=== PATIENT | female | born 1970 | race Caucasian/White ===

== ENCOUNTER 2020-01-07 12:18 | Outpatient (REF) | payer MEDICAID, OTHER, SELFPAY ==
--- NOTE | 2020-01-07 12:33 | XR_ITS ---
EXAMINATION: XR LUMBOSACRAL SPINE WITH OBLIQUES CLINICAL INFORMATION: Sacroiliitis. COMPARISON: None TECHNIQUE: AP, both oblique, and lateral views of the lumbar spine. Lateral view of the lumbosacral junction. FINDINGS: There is normal lumbar lordosis. The vertebral heights, alignment and disc heights are normal. There is no visible acute fracture, dislocation or subluxation. No listhesis or pars defect. The paravertebral soft tissues are normal. XR/XR lumbar spine 4V min IMPRESSION: Unremarkable lumbar spine exam.
== END 2020-01-07 12:19 | disposition home or self-care (01) ==
LOC: HO.XRAY 12:18
PROVIDERS: PCP Internal Medicine; Visit Provider Internal Medicine
DX: M46.1 Sacroiliitis, not elsewhere classified (principal)
CPT/HCPCS: 72110

== ENCOUNTER 2020-01-15 09:03 | Emergency (ER) | payer MEDICAID, SELFPAY ==
[2020-01-15 09:28] VITALS: BP 118/70; PULSE 90; RESP 17; TEMP 37.1; O2SAT 100; BMI 18.8
--- NOTE | 2020-01-15 09:40 | XR_ITS ---
EXAMINATION: XR HIP, LEFT CLINICAL INFORMATION: Left hip pain. COMPARISON: None TECHNIQUE: Two views of the left hip. FINDINGS: There is no visible acute fracture, dislocation or subluxation. No joint effusion seen. No bony erosive changes. XR/XR hip LT w PEL1V IMPRESSION: Unremarkable left hip exam.
--- NOTE | 2020-01-15 10:27 | ED.LOWEXIN ---
HPI - Extremity Injury (Lower) General Chief Complaint: Extremity Injury, Lower Stated Complaint: HIP PAIN Time Seen by Provider: 01/15/20 09:39 Source: patient Mode of arrival: ambulatory History of Present Illness HPI Narrative: 49-year-old female with no significant past medical history presenting to ED complaining of acute on chronic left hip pain x2 months. Admits recently had outpatient x-rays, however does not know the results. Reports continued pain in left hip/buttock, denies radiation. Denies low back pain, fever, chills, numbness, tingling, weakness, incontinence/retention. Denies injury/fall/trauma MD complaint: hip injury Onset (ago): month(s) Related Data Previous Rx's Medication Instructions Recorded acetaminophen [Tylenol Extra 500 mg PO Q6H PRN #20 tab 01/15/20 Strength] cyclobenzaprine 5 mg PO Q8H PRN 5 Days #14 tab 01/15/20 lidocaine [Lidoderm] 1 patch TOPICAL DAILY PRN #30 ea 01/15/20 MDD remove after 12 hours naproxen 500 mg PO BID PRN 10 Days #20 tab 01/15/20 Allergies Allergy/AdvReac Type Severity Reaction Status Date / Time No Known Allergies Allergy Verified 01/15/20 09:31 [No Known Allergies*] Review of Systems Review of Systems: Constitutional: No Fever, No Chills ENT/Mouth: No Ear Pain, No Nasal Congestion, No Sinus Pain, No Hoarseness, No sore throat Genitourinary:No Dysuria, No Urinary Incontinence, No Urgency, No Flank Pain Musculoskeletal: + joint pain, No Myalgias, No Joint Swelling Skin: No Skin Lesions, No rash Neuro: No Weakness, No Numbness, No Paresthesias Yes all other systems are reviewed and are negative [facility] [place] Past Medical History Attestation statement: The following information was validated with the patient. Medical History (Updated 01/15/20 @ 10:26 by STEPHY Dozier) No known health problems Social History Social History Advance Directives: No Advance Directives Information Provided: No Physical Exam Vital Signs: Vital Signs: Last Vital Signs Temp 98.8 F 01/15/20 09:28 Pulse 90 01/15/20 09:28 Resp 17 01/15/20 09:28 BP 118/70 01/15/20 09:28 Pulse Ox 100 01/15/20 09:28 Body Mass Index 18.8 Const: General: cooperative and healthy appearing Orientation/consciousness: patient oriented x3 Limitations: no limitations HENMT: Head: Yes normal to inspection Ears: hearing grossly normal bilaterally General nose exam: Normal external nose present Face and sinus: Yes normal facial exam Eyes: General: appearance normal, both eyes and all related structures EOM: EOMs intact bilaterally Neck: Neck: Yes normal visual inspection Resp: Effort & Inspection: normal respiratory effort Cardio: Peripheral pulses: dorsalis pedis present : General: Yes no CVA tenderness Back/Spine/Pelvis: Other: No midline spinous tenderness throughout Back: no CVA tenderness Skin: Rashes: no rashes Wounds: no wounds Neuro: General: patient oriented x3 Gait exam (Neuro): Normal gait present Extrem: Other: + left hip with ttp greater and buttock. No deformity, erythema, crepitus, fluctuance or induration. FROM/NV intact General: Yes normal to inspection MDM - Extremity Injury (Lower) MDM Narrative Medical decision making narrative: On exam VSS, NAD/well-appearing, ambulating with steady gait, left hip/buttock pain reproducible. Likely MSK/sciatic pain. Low concern for fracture/dislocation or cord compression Patient received lumbar spine x-rays which were WNL on 01/06, will add left hip/pelvic x-rays Anticipate DC home with PCP/PT follow-up Discharge Plan Discharge Clinical Impression: Hip pain Patient Disposition: Home, Self-Care Instructions: Hip Pain (ED) Additional Instructions: Your x-ray was unremarkable today in the ED Your pain is likely musculoskeletal Flexeril is a muscle relaxer, take at night as it makes you drowsy, do not drive, drink alcohol, or operate machinery while taking it Naproxen as an anti-inflammatory / pain medication, take with food Lidoderm patches are numbing patches, apply to painful area In addition take Tylenol at home You should follow-up with physical therapy If symptoms persist or worsen, pain becomes unbearable, you developed urinary retention or incontinence, or weakness return to the ED Prescriptions: New acetaminophen [Tylenol Extra Strength] 500 mg tablet 500 mg PO Q6H PRN (Reason: pain or fever) Qty: 20 RF: 0 lidocaine [Lidoderm] 5 % adhesive patch,medicated 1 patch topical DAILY MDD remove after 12 hours PRN (Reason: pain) Qty: 30 RF: 0 naproxen 500 mg tablet 500 mg PO BID PRN (Reason: pain) 10 Days Qty: 20 RF: 0 cyclobenzaprine 5 mg tablet 5 mg PO Q8H PRN (Reason: pain (scale score 7-10)) 5 Days Qty: 14 RF: 0 Referrals: Yolanda Crabtree [Registered Nurse] - 1 week Physician,None [Primary Care Provider] - 2 days (Your PCP)
== END 2020-01-15 10:42 | disposition home or self-care (01) ==
PROVIDERS: Emergency Provider Emergency Medicine
DX: M25.552 Pain in left hip (principal); Z79.899 Other long term (current) drug therapy
CPT/HCPCS: 73502; 99283

== ENCOUNTER 2020-04-15 13:10 | Emergency (ER) | payer MEDICAID, OTHER, SELFPAY | END 2020-04-15 16:28 | disposition left against medical advice (07) | PROVIDERS: Emergency Provider Emergency Medicine; PCP Internal Medicine | DX: M79.606 Pain in leg, unspecified (principal) ==

== ENCOUNTER 2020-08-01 12:38 | Outpatient (REF) | payer MEDICAID, OTHER, SELFPAY ==
--- NOTE | ~2020-08-01 | MM_ITS ---
EXAMINATION: MM SCREENING DIGITAL BREAST TOMOSYNTHESIS, BILATERAL CLINICAL INFORMATION: Screening. Asymptomatic. The lifetime risk of breast cancer based on the Tyrer-Cuzick Model is 6.9%. COMPARISON: Mammography: December 09, 2018 and November 19, 2017 TECHNIQUE: Digital breast tomosynthesis is performed in both the craniocaudal and mediolateral oblique views along with computer-aided detection (CAD). Synthesized 2D images are generated from the tomosynthesis. Additional left breast exaggerated craniocaudal view performed. FINDINGS: The breasts are heterogeneously dense, which may obscure small masses (ACR BI-RADS breast composition Category c). No suspicious left breast findings identified. Within the deep superior aspect of the right breast there is an irregular density which is more prominent than on prior studies and for which spot compression view is recommended with question ultrasound to follow. MM/MM tomosynthesis screening BI IMPRESSION: Right breast density deep superior aspect for further evaluation as described. ASSESSMENT: BI-RADS 0: Incomplete - Need Additional Imaging Evaluation RECOMMENDATION: 1. Additional views of the right breast 2. Targeted ultrasound if warranted after review of the additional views. 3. Radiology department staff will contact the patient for additional imaging. This patient's information was entered into a reminder system with a target due date for their next mammogram.
== END 2020-08-01 12:39 | disposition home or self-care (01) ==
LOC: HO.MAMMO 12:38
PROVIDERS: Visit Provider Internal Medicine
DX: Z12.31 Encounter for screening mammogram for malignant neoplasm of breast (principal)
CPT/HCPCS: 77063; 77067

== ENCOUNTER 2020-08-05 09:57 | Outpatient (REF) | payer MEDICAID, OTHER, SELFPAY ==
--- NOTE | ~2020-08-05 | MM_ITS ---
EXAMINATION: MM DIAGNOSTIC DIGITAL BREAST TOMOSYNTHESIS, RIGHT TARGETED RIGHT BREAST ULTRASOUND CLINICAL INFORMATION: Density deep superior aspect of the right breast. COMPARISON: Mammography: 08/01/2020 and studies dating back to 11/19/2017. TECHNIQUE: Digital breast tomosynthesis is performed. 2D images are generated from the tomosynthesis. The following views are obtained: Spot compression views in mediolateral oblique and craniocaudal projections. FINDINGS: The breasts are heterogeneously dense, which may obscure small masses (ACR BI-RADS breast composition Category c). Spot compression views demonstrate a density in the deep superior aspect of the right breast which may be related to a combination of vessels and lymph nodes with a similar appearance to previous study of 12/09/2018. Targeted right breast ultrasound does not demonstrate a suspicious solid mass or region of abnormal distal sound shadowing. There is a 3 mm simple cyst seen at the 9 o'clock position 5 cm from the nipple but which does not correspond to the location of question. Results are discussed with the patient at time of visit. MM/MM tomosynthesis added views R IMPRESSION: Probable stable density deep superior aspect of the right breast for which a six-month follow-up mammogram is suggested. ASSESSMENT: BI-RADS 3: Probably Benign. RECOMMENDATION: Diagnostic mammography in 6 months. This patient's information was entered into a reminder system with a target due date for their next mammogram.
--- NOTE | ~2020-08-05 | US_ITS ---
EXAMINATION: US DIAGNOSTIC ULTRASOUND BREAST, RIGHT CLINICAL INFORMATION: Density deep superior aspect of the right breast.. COMPARISON: Mammography of same day as well as studies dating back to November 19, 2017. TECHNIQUE: Ultrasound of the breast is performed with real-time [employer] scale imaging and color Doppler. FINDINGS: Targeted right breast ultrasound does not demonstrate a suspicious solid mass or region of abnormal distal sound shadowing. There is a 3 mm simple cyst seen at the 9:00 position 5 cm from the nipple but which does not correspond to the location of question. Results are discussed with the patient at time of visit. US/US breast RT limited IMPRESSION: Probable stable density deep superior aspect of the right breast for which a six-month follow-up mammogram is suggested. ASSESSMENT: BI-RADS 3: Probably Benign RECOMMENDATION: Diagnostic mammography in 6 months.
== END 2020-08-05 09:58 | disposition home or self-care (01) ==
LOC: HO.MAMMO 09:57
PROVIDERS: PCP Internal Medicine; Visit Provider Internal Medicine
DX: R92.2 Inconclusive mammogram (principal)
CPT/HCPCS: 76642; 77061; 77065

== ENCOUNTER 2020-11-22 22:05 | Inpatient (IN) | payer MEDICAID, OTHER, SELFPAY ==
--- NOTE | ~2020-11-22 | CT_ITS ---
EXAMINATION: CT ANGIOGRAM OF THE CHEST; CONTRAST-ENHANCED CT OF THE ABDOMEN AND PELVIS INDICATION: Chest and abdominal pain COMPARISON: None TECHNIQUE: 85 mL Omnipaque 350 IV contrast was utilized. Multidetector helical imaging was performed through the chest per PE protocol. Coronal, sagittal, and MIP images of the chest were created. In addition, multidetector helical imaging was performed through the abdomen and pelvis. Coronal and sagittal reformatted images were created at the technologist workstation. DOSE LOWERING TECHNIQUES: This CT examination was performed using dose optimization techniques as appropriate, variously including the following: - Automated exposure control - Adjustment of mA and/or kV according to patient size (this includes techniques or standardized protocols for targeted exams were dose is matched to indication/reason for exam; i.e. extremities or head) - Use of iterative reconstruction technique DLP: 647 mGy-cm FINDINGS: Chest: No filling defects are seen in the main, lobar, or segmental pulmonary arteries to suggest the presence of pulmonary emboli. Mild biapical scarring is noted. No regions of consolidation bilaterally. No pneumothorax or pleural effusion. The visualized thyroid gland is unremarkable. There are subcentimeter mediastinal lymph nodes within the range of normal variation. Cardiac size is within normal limits; no pericardial effusion. The aorta is unremarkable. No axillary lymphadenopathy is present. Abdomen/Pelvis: The liver is homogeneous in attenuation without intrahepatic biliary ductal dilatation. The gallbladder is unremarkable. The spleen, pancreas, and adrenal glands are within normal limits. Bilateral nephrograms are symmetric. No hydronephrosis. No obstructing renal or ureteral calculi are present. The urinary bladder is distended without wall thickening. The uterus and adnexa are unremarkable. The small and large bowel are unremarkable without evidence of obstruction or pericolonic inflammatory change. The appendix is unremarkable. No free fluid or free air is identified. The vascular structures are unremarkable. No retroperitoneal or pelvic lymphadenopathy is seen. No acute osseous findings. CT/CT angio chest PE protocol IMPRESSION: No evidence of pulmonary embolus. No acute findings identified in the abdomen/pelvis.
--- NOTE | ~2020-11-22 | MR_ITS ---
EXAMINATION: MR BRAIN WITHOUT AND WITH CONTRAST CLINICAL INFORMATION: 5 mm right frontal calcification/mass. COMPARISON: CT head from 11/22/2020. TECHNIQUE: MRI of the brain was obtained using routine sequences without and following the administration of 5.5 mL of Gadavist intravenous contrast. FINDINGS: No focal restricted diffusion is demonstrated to suggest acute or subacute cerebral ischemia. No evidence of acute or chronic hemorrhagic products on heme-sensitive imaging. There is a subcentimeter focus of susceptibility artifact in the anterior right middle frontal gyrus correlating with previously demonstrated calcifications on recent CT. No associated enhancement. There appears to be a 0.5 cm lesion in this location that is peripherally T2 hypointense with slight internal T2 hyperintensity. Few nonspecific scattered periventricular and deep white matter T2 FLAIR hyperintensities. The ventricles are normal in morphology and size. No abnormal mass effect. No midline shift. Normal appearance of the pituitary gland. No abnormalities of the posterior fossa with normal appearance of the brainstem and cerebellum. Normal arterial and venous vascular flow voids are present. No abnormal contrast enhancement. Normal, homogeneous marrow signal. No signal abnormalities within the paranasal sinuses or mastoids. Mild rightward nasal septal deviation. MR/MR head/brain wo/w con IMPRESSION: 1. No acute intracranial abnormalities. No abnormal intracranial enhancement. 2. Minimal nonspecific white matter changes. 3. Redemonstrated 0.5 cm calcified lesion in the anterior right frontal lobe. The characteristics of this lesion may represent a tiny underlying calcified cavernoma. No suspicious features. No abnormal enhancement.
--- NOTE | ~2020-11-22 | CT_ITS ---
EXAMINATION: CT HEAD WITHOUT CONTRAST CLINICAL INFORMATION: Change in mental status, headache COMPARISON: None TECHNIQUE: Contiguous axial imaging was performed from the skull base to vertex without intravenous administration of contrast. This CT examination was performed using dose optimization techniques as appropriate, variously including the following: *Automated exposure control *Adjustment of mA and/or kV according to patient size (this includes techniques or standardized protocols for targeted exams where dose is matched to indication/reason for exam; i.e. extremities or head) *Use of iterative reconstruction technique DLP: 562 mGy-cm FINDINGS: There is no evidence of acute intracranial hemorrhage or territorial infarction. No abnormal mass effect or midline shift is seen. James to white matter differentiation is well preserved. No extra-axial fluid collections are identified. The ventricles are normal in size. Calcification is noted in the right frontal lobe measuring approximately 5 mm in size and which may be associated with an underlying mass. The osseous structures and soft tissues are normal. The mastoid air cells and visualized portions of the paranasal sinuses are well aerated. CT/CT head/brain wo con IMPRESSION: No acute intracranial pathology. Right frontal lobe calcification measuring 5 mm, which may be associated with underlying mass; this would be best further assessed with pre and postcontrast MRI.
--- NOTE | 2020-11-22 22:14 | PC.NURSE ---
came home and pt was in a chair arms out eyes closed and not talking, pt then began to rub her chest and is nausea. pt brought back to room 10 and rn notified of pt reason for comeing.
[2020-11-22 22:31] VITALS: BP 146/79; PULSE 94; RESP 14; TEMP 36.6; O2SAT 100; BMI 23.2
--- NOTE | 2020-11-22 22:44 | ECG_ITS ---
Test Reason : CHEST PAIN Blood Pressure : / mmHG Vent. Rate : 091 BPM Atrial Rate : 091 BPM P-R Int : 148 ms QRS Dur : 074 ms QT Int : 362 ms P-R-T Axes : 044 057 056 degrees QTc Int : 445 ms Normal sinus rhythm Normal ECG No previous ECGs available Referred By: Clark Perez Electronically Signed By:JACQUELYN LANDRUM
[2020-11-23] VITALS (10 sets, daily range): BP systolic 95–155; BP diastolic 53–92; PULSE 68–108; RESP 12–20; TEMP 36.5–36.9; O2SAT 93–100
--- NOTE | 2020-11-23 | EEG_ITS ---
This is a 16-channel EEG with an EKG lead. The patient is awake during the tracing. Background EEG rhythm is at times 8 to 10 hertz, 5 to 30 microvolt posteriorly and at times low amplitude fast with no obvious asymmetry or paroxysmal tendency. No sharp waves were noted. Photic stimulation does not produce any significant abnormality. Hyperventilation was not performed. Cardiac lead does not reveal any significant abnormality. IMPRESSION: Unremarkable awake EEG. MD JENNIFER Jones/DORETHA / [id number]
[2020-11-23] MEDS: iohexoL 350 MG/ML 100 ML INFUS..BTL 85 ML IV (00:06)
--- NOTE | 2020-11-23 00:14 | PC.NURSE ---
Daughter Pat [phone] for update
--- NOTE | 2020-11-23 00:20 | PC.NURSE ---
pt was brought back straight from triage and reported to rn that the has not been triaged and needs a ekg. ekg was not done and pt is activly having chest pain and ekg is being done at this time. all labs are being drawn.
[2020-11-23 00:26] LABS: Basophils Percent Auto 0.4 % (0-2); Eosinophils Absolute Auto 0.1 X10*3/uL (0.0-0.4); Eosinophils Percent Auto 0.7 % (0-4); Hematocrit 36.8 % (37-47); Hemoglobin 12.5 g/dl (12.0-16.0); Imm Gran Abs Auto 0.04 X10*3/uL (0.00-0.03); Imm Gran Pct Auto 0.4 % (0.0-0.4); Lymphocytes Absolute Auto 2.1 X10*3/uL (1.2-4.9); Lymphocytes Percent Auto 18.6 % (20-40); MANUAL DIFF FLAG NO; Mean Corpuscular Hemoglobin 30.7 pg (27.0-33.0); Mean Corpuscular Volume 90.4 fL (80-98); Mean Platelet Volume 10.7 fL (9.4-12.3); Monocytes Absolute Auto 0.8 X10*3/uL (0.1-1.2); Monocytes Percent Auto 7.2 % (2-11); Neutrophils Absolute Auto 8.3 X10*3/uL (2.0-8.3); Neutrophils Percent Auto 72.7 % (45-73); Platelet Count 328 X10*3/uL (160-400); Red Blood Count 4.07 X10*6/uL (4.20-5.50); Red Cell Distribution Width 11.7 % (11.0-16.0); White Blood Count 11.4 X10*3/uL (4.8-10.8)
[2020-11-23 00:28] LABS: Appearance Urine HAZY; Color Urine RED; Glucose Urine UA NEG (NEG); Leukocyte Esterase Urine NEG (NEG); Nitrite Urine NEG (NEG); Specific Gravity - Urine <= 1.005 (1.005-1.025); UACC Culture Trigger NO; Urine Blood 3+ (NEG); Urine Ketones 5 MG/DL (NEG); Urine Protein NEG (NEG-TRACE)
[2020-11-23 00:30] LABS: Venous Blood Gas Refer to POC result
[2020-11-23 00:31] LABS: VBG Base Excess -1.2 mmol/L; VBG HCO3 23 mmol/L (22-26); VBG pCO2 39 mmHg; VBG pH 7.38 (7.32-7.43); VBG pO2 67 mmHg
[2020-11-23 00:38] LABS: WBC Urine 0-2 /HPF (0-4)
[2020-11-23 00:39] LABS: Bacteria Urine TRACE /LPF; COVID-19 Test Negative (Negative); IDNOW Serial# 9DD0AD1C; Squamous Epithelial Cell Urine TRACE /LPF
--- NOTE | 2020-11-23 00:41 | ED.GENADULT ---
HPI - General Adult General Chief complaint: General Medical Stated complaint: odd behavior Time Seen by Provider: 11/22/20 22:43 Source: patient and family () Mode of arrival: ambulatory Limitations: language barrier (Divehi speaking only, Divehi japanese interpreter used([employer] iPad)) History of Present Illness HPI narrative: 50-year-old female who was brought to the emergency department by her for altered mental status. The patient and her clean houses for a living. The was working at 1 house and then went to a another house where his was working to pick her up and take her home. He found her unresponsive sitting in a chair, clutching her chest. He states that she was not talking and not responding to his questions therefore he brought her to the emergency department. On presentation the patient appeared altered, she did answer questions but slowly, she was oriented to person and place. She would intermittently complain of a headache but would not answer questions about the headache and would intermittently complain of chest pain but would not answer questions. According to the , he has never seen her like this before. The states that she was in her usual state of health prior to him finding her altered. He states that they have been cleaning houses for some time and that the patient uses the same cleaning products. The patient is allergic to bleach and she does not use any bleach cleaning products. According to the , the patient has been having intermittent headaches but has not taken any medications for them. Related Data Previous Rx's Medication Instructions Recorded acetaminophen 500 mg tablet 500 mg PO Q6H PRN #20 tab 01/15/20 (Tylenol Extra Strength) cyclobenzaprine 5 mg tablet 5 mg PO Q8H PRN 5 Days #14 tab 01/15/20 lidocaine 5 % topical patch 1 patch TOPICAL DAILY PRN #30 ea 01/15/20 (Lidoderm) MDD remove after 12 hours naproxen 500 mg tablet 500 mg PO BID PRN 10 Days #20 tab 01/15/20 Allergies Allergy/AdvReac Type Severity Reaction Status Date / Time No Known Allergies Allergy Verified 04/15/20 14:47 [No Known Allergies*] Review of Systems Review of Systems: Yes all other systems are reviewed and are negative [facility] Past Medical History [facility] Narrative: Past medical history: None. Past surgical history: None. Social history: She denies tobacco, alcohol and drug use. Medical History (Updated 11/23/20 @ 02:03 by Clark Perez MD) No known health problems Social History Social History Advance Directives: No Patient : No Physical Exam Vital Signs: Vital Signs: Last Vital Signs Temp 97.8 F 11/22/20 22:31 Pulse 79 11/23/20 01:52 Resp 16 11/23/20 01:52 BP 125/77 11/23/20 01:52 Pulse Ox 98 11/23/20 01:52 Body Mass Index 23.2 Const: Other: Patient is awake, she does appear to be altered, she does answer questions appropriately. She intermittently hold her head and hold her chest. HENMT: Head: Yes normal to inspection, Yes normocephalic and Yes atraumatic Ears: external ears normal General nose exam: Normal external nose present Face and sinus: Yes normal facial exam Mouth: Normal oral and palatal mucosa present Throat: Yes posterior oropharynx normal Eyes: General: appearance normal, both eyes and all related structures Pupils: Equal, round and reactive pupils present Neck: Neck: Yes normal visual inspection, Yes no lymphadenopathy, Yes trachea midline and Yes supple Chest: Chest palpation & inspection: normal inspection of the chest and normal palpation of entire chest wall Resp: Effort & Inspection: normal respiratory effort and able to speak in complete sentences Auscultation: clear to auscultation bilaterally Cardio: Rate: regular rate Rhythm: regular rhythm Heart sounds: S1 normal heart sound present, S2 normal heart sound present and no murmurs GI: Inspection: Yes normal to inspection Palpation (GI): Soft to palpation, nontender and no guarding Auscultation: normal bowel sounds : General: Yes no CVA tenderness Back/Spine/Pelvis: Back: no CVA tenderness Skin: General skin exam: no rashes or lesions noted Neuro: Cranial nerves: Yes CN's II-XII intact bilaterally and Yes Equal, round and reactive pupils present Cognition (Neuro): normal cognition Motor exam (neuro): 5/5 motor strength present throughout Extrem: General: Yes normal to inspection Course Course Course Narrative: 50-year-old female who is brought to the emergency department for evaluation altered mental status. The states that he found the patient unresponsive, clutching her chest at home and brought the patient to the emergency department for evaluation. Here the patient does appear to be altered but she does answer questions slowly but appropriately. She intermittently hold her head and holds her chest but is vague in describing her pain. Patient's neurologic exam appears to be nonfocal. Differential includes but is not limited to subarachnoid hemorrhage, stroke, seizure with postictal period, meningitis, toxic metabolic syndrome, intoxication. I ordered a CT scan of the patient's head without contrast and a CT scan of the patient's chest abdomen pelvis with IV contrast. Laboratory evaluation was also ordered. 0050: The CT scan of the head revealed a right frontal lobe calcification measuring 5 mm which the radiologist stated could be associated with an underlying mass. The patient appears to be much more awake and alert and was able to answer questions appropriately and give a better history. She states that she was at her job site and had a sudden onset of a feeling as if she was not there and her body was numb. She sat in a chair but does not remember what happened afterwards, she does not remember her finding her and bring her to the hospital. She states that over the past several months she has had intermittent headaches which may occur at the time of menses. She states she is currently menstruating. Given her altered mental status and the fact that she is now back to baseline, I am concerned that she may have had a seizure and that she was postictal on presentation. Also I am concerned that she may have a calcified lesion which may have caused her to have the seizure. At this time there is no mass effect or shift and did not think that she does not need dexamethasone 0205: I did discuss the patient's presentation with the covering neurologist, Dr. Malik. Given the uncertain etiology of the patient's altered mental status he did agree that the patient should be admitted for further diagnostic workup and evaluation. I will discuss the patient's presentation with the covering hospitalist. 0220: I did discuss the patient's presentation with the covering hospitalist, and the patient will be admitted to hospital service. After our discussion, the patient will be loaded with Keppra 500 mg IV and started on Keppra 500 mg twice a day. The patient [place] be [place] [facility] Medical Decision Making Lab Data Result diagrams: 11/23/20 00:19 11/23/20 00:18 Labs: Lab Results 11/23/20 11/23/20 11/23/20 Range/Units 00:18 00:18 00:18 WBC (4.8-10.8) X10*3/uL RBC (4.20-5.50) X10*6/uL Hgb (12.0-16.0) g/dl Hct (37-47) % MCV (80-98) fL MCH (27.0-33.0) pg MCHC (31.0-35.0) g/dl RDW (11.0-16.0) % Plt Count (160-400) X10*3/uL MPV (9.4-12.3) fL Immature Gran % (Auto) (0.0-0.4) % Neut % (Auto) (45-73) % Lymph % (Auto) (20-40) % [place] % (Auto) (2-11) % Eos % (Auto) (0-4) % Baso % (Auto) (0-2) % Lymph # (Auto) (1.2-4.9) X10*3/uL [place] # (Auto) (0.1-1.2) X10*3/uL Eos # (Auto) (0.0-0.4) X10*3/uL Baso # (Auto) (0.0-0.2) X10*3/uL Abs Immat Gran (auto) (0.00-0.03) X10*3/uL Absolute Neuts (auto) (2.0-8.3) X10*3/uL Absolute Nucleated RBC (0.0-0.012) X10*3/uL Nucleated RBC % (auto) (0.0-0.2) /100WBC PT (9.9-13.0) SEC INR (0.9-1.1) APTT (24.1-38.0) SEC D-Dimer NG/ML VBG pH (7.32-7.43) VBG pCO2 mmHg VBG pO2 mmHg VBG HCO3 (22-26) mmol/L VBG O2 Saturation % VBG Base Excess mmol/L Sodium 136 (135-145) mmol/L Potassium 3.7 (3.3-5.1) mmol/L Chloride 104 (96-108) mmol/L Carbon Dioxide 23 (22-29) mmol/L Anion Gap 13 (12-20) BUN 11 (9-16) mg/dL Creatinine 0.71 (0.5-1.4) mg/dL Estim Creat Clear Calc 68.1 Estimated GFR > 60 Random Glucose 94 (60-115) mg/dL Calcium 9.0 (8.4-10.2) mg/dL Total Bilirubin 0.6 (0.0-1.0) mg/dL AST 15 (5-31) U/L ALT 8 (0-31) U/L Alkaline Phosphatase 63 (39-117) U/L Total Creatine Kinase 42 (26-140) U/L Troponin I High Sens < 3.5 (<3.5-17.0) ng/L Total Protein 6.3 L (6.5-8.0) g/dL Albumin 3.9 (3.5-5.0) g/dL Lipase 22 (8-78) U/L Urine Color Urine Appearance Urine pH (5.0-8.0) Ur Specific [place] (1.005-1.025) Urine Protein (NEG-TRACE) MG/DL Urine Glucose (UA) (NEG) MG/DL Urine Ketones (NEG) MG/DL Urine Blood (NEG) Urine Nitrite (NEG) Ur Leukocyte Esterase (NEG) Urine RBC (0) /HPF Urine WBC (0-4) /HPF Ur Squamous Epith Cells /LPF Urine Bacteria /LPF Salicylates < 5.0 L (15-30) mg/dL Urine Opiates Screen (Not Detect) Urine Fentanyl Screen (Not Detect) Acetaminophen < 1 (<30) mcg/mL Ur Barbiturates Screen (Not Detect) Ur Phencyclidine Scrn (Not Detect) Ur Amphetamines Screen (Not Detect) U Benzodiazepines Scrn (Not Detect) Urine Cocaine Screen (Not Detect) U Marijuana (THC) Screen (Not Detect) Ethyl Alcohol mg/dL COVID-19 (NEGRA) Negative (Negative) COVID-19 Clin Com See Note 11/23/20 11/23/20 11/23/20 Range/Units 00:18 00:18 00:18 WBC (4.8-10.8) X10*3/uL RBC (4.20-5.50) X10*6/uL Hgb (12.0-16.0) g/dl Hct (37-47) % MCV (80-98) fL MCH (27.0-33.0) pg MCHC (31.0-35.0) g/dl RDW (11.0-16.0) % Plt Count (160-400) X10*3/uL MPV (9.4-12.3) fL Immature Gran % (Auto) (0.0-0.4) % Neut % (Auto) (45-73) % Lymph % (Auto) (20-40) % [place] % (Auto) (2-11) % Eos % (Auto) (0-4) % Baso % (Auto) (0-2) % Lymph # (Auto) (1.2-4.9) X10*3/uL [place] # (Auto) (0.1-1.2) X10*3/uL Eos # (Auto) (0.0-0.4) X10*3/uL Baso # (Auto) (0.0-0.2) X10*3/uL Abs Immat Gran (auto) (0.00-0.03) X10*3/uL Absolute Neuts (auto) (2.0-8.3) X10*3/uL Absolute Nucleated RBC (0.0-0.012) X10*3/uL Nucleated RBC % (auto) (0.0-0.2) /100WBC PT (9.9-13.0) SEC INR (0.9-1.1) APTT (24.1-38.0) SEC D-Dimer NG/ML VBG pH (7.32-7.43) VBG pCO2 mmHg VBG pO2 mmHg VBG HCO3 (22-26) mmol/L VBG O2 Saturation % VBG Base Excess mmol/L Sodium (135-145) mmol/L Potassium (3.3-5.1) mmol/L Chloride (96-108) mmol/L Carbon Dioxide (22-29) mmol/L Anion Gap (12-20) BUN (9-16) mg/dL Creatinine (0.5-1.4) mg/dL Estim Creat Clear Calc Estimated GFR Random Glucose (60-115) mg/dL Calcium (8.4-10.2) mg/dL Total Bilirubin (0.0-1.0) mg/dL AST (5-31) U/L ALT (0-31) U/L Alkaline Phosphatase (39-117) U/L Total Creatine Kinase (26-140) U/L Troponin I High Sens (<3.5-17.0) ng/L Total Protein (6.5-8.0) g/dL Albumin (3.5-5.0) g/dL Lipase (8-78) U/L Urine Color RED Urine Appearance HAZY Urine pH 6.0 (5.0-8.0) Ur Specific [place] <= 1.005 (1.005-1.025) Urine Protein NEG (NEG-TRACE) MG/DL Urine Glucose (UA) NEG (NEG) MG/DL Urine Ketones 5 (NEG) MG/DL Urine Blood 3+ H (NEG) Urine Nitrite NEG (NEG) Ur Leukocyte Esterase NEG (NEG) Urine RBC 76-150 H (0) /HPF Urine WBC 0-2 (0-4) /HPF Ur Squamous Epith Cells TRACE /LPF Urine Bacteria TRACE /LPF Salicylates (15-30) mg/dL Urine Opiates Screen Not Detected (Not Detect) Urine Fentanyl Screen Not Detected (Not Detect) Acetaminophen (<30) mcg/mL Ur Barbiturates Screen Not Detected (Not Detect) Ur Phencyclidine Scrn Not Detected (Not Detect) Ur Amphetamines Screen Not Detected (Not Detect) U Benzodiazepines Scrn Not Detected (Not Detect) Urine Cocaine Screen Not Detected (Not Detect) U Marijuana (THC) Screen Not Detected (Not Detect) Ethyl Alcohol < 10 mg/dL COVID-19 (NEGRA) (Negative) COVID-19 Clin Com 11/23/20 11/23/20 11/23/20 Range/Units 00:19 00:19 00:25 WBC 11.4 H (4.8-10.8) X10*3/uL RBC 4.07 L (4.20-5.50) X10*6/uL Hgb 12.5 (12.0-16.0) g/dl Hct 36.8 L (37-47) % MCV 90.4 (80-98) fL MCH 30.7 (27.0-33.0) pg MCHC 34.0 (31.0-35.0) g/dl RDW 11.7 (11.0-16.0) % Plt Count 328 (160-400) X10*3/uL MPV 10.7 (9.4-12.3) fL Immature Gran % (Auto) 0.4 (0.0-0.4) % Neut % (Auto) 72.7 (45-73) % Lymph % (Auto) 18.6 L (20-40) % [place] % (Auto) 7.2 (2-11) % Eos % (Auto) 0.7 (0-4) % Baso % (Auto) 0.4 (0-2) % Lymph # (Auto) 2.1 (1.2-4.9) X10*3/uL [place] # (Auto) 0.8 (0.1-1.2) X10*3/uL Eos # (Auto) 0.1 (0.0-0.4) X10*3/uL Baso # (Auto) 0.0 (0.0-0.2) X10*3/uL Abs Immat Gran (auto) 0.04 H (0.00-0.03) X10*3/uL Absolute Neuts (auto) 8.3 (2.0-8.3) X10*3/uL Absolute Nucleated RBC 0.000 (0.0-0.012) X10*3/uL Nucleated RBC % (auto) 0.0 (0.0-0.2) /100WBC PT 12.5 (9.9-13.0) SEC INR 1.1 (0.9-1.1) APTT 31.1 (24.1-38.0) SEC D-Dimer < 200 NG/ML VBG pH 7.38 (7.32-7.43) VBG pCO2 39 mmHg VBG pO2 67 mmHg VBG HCO3 23 (22-26) mmol/L VBG O2 Saturation 90.0 % VBG Base Excess -1.2 mmol/L Sodium (135-145) mmol/L Potassium (3.3-5.1) mmol/L Chloride (96-108) mmol/L Carbon Dioxide (22-29) mmol/L Anion Gap (12-20) BUN (9-16) mg/dL Creatinine (0.5-1.4) mg/dL Estim Creat Clear Calc Estimated GFR Random Glucose (60-115) mg/dL Calcium (8.4-10.2) mg/dL Total Bilirubin (0.0-1.0) mg/dL AST (5-31) U/L ALT (0-31) U/L Alkaline Phosphatase (39-117) U/L Total Creatine Kinase (26-140) U/L Troponin I High Sens (<3.5-17.0) ng/L Total Protein (6.5-8.0) g/dL Albumin (3.5-5.0) g/dL Lipase (8-78) U/L Urine Color Urine Appearance Urine pH (5.0-8.0) Ur Specific [place] (1.005-1.025) Urine Protein (NEG-TRACE) MG/DL Urine Glucose (UA) (NEG) MG/DL Urine Ketones (NEG) MG/DL Urine Blood (NEG) Urine Nitrite (NEG) Ur Leukocyte Esterase (NEG) Urine RBC (0) /HPF Urine WBC (0-4) /HPF Ur Squamous Epith Cells /LPF Urine Bacteria /LPF Salicylates (15-30) mg/dL Urine Opiates Screen (Not Detect) Urine Fentanyl Screen (Not Detect) Acetaminophen (<30) mcg/mL Ur Barbiturates Screen (Not Detect) Ur Phencyclidine Scrn (Not Detect) Ur Amphetamines Screen (Not Detect) U Benzodiazepines Scrn (Not Detect) Urine Cocaine Screen (Not Detect) U Marijuana (THC) Screen (Not Detect) Ethyl Alcohol mg/dL COVID-19 (NEGRA) (Negative) COVID-19 Clin Com ECG Data Interpretation: 0022: Normal sinus rhythm with a rate of 91, normal SC interval, normal QRS duration, normal QTC. No ST segment elevation, no ST segment depression. No T-wave abnormalities. This is a normal EKG. Discharge Plan Discharge Clinical Impression: Acute alteration in mental status, Cerebral calcification Patient Disposition: Admitted As Inpatient
[2020-11-23 00:46] LABS: INTERNATIONAL NORM RATIO 1.1 (0.9-1.1); Prothrombin Time 12.5 SEC (9.9-13.0)
[2020-11-23 00:49] LABS: Partial Thromboplastin Time 31.1 SEC (24.1-38.0)
[2020-11-23 00:51] LABS: D Dimer < 200 NG/ML
[2020-11-23 00:53] LABS: Ethanol < 10 mg/dL
[2020-11-23 00:56] LABS: Acetaminophen LAB < 1 mcg/mL (<30); Alanine Aminotransferase 8 U/L (0-31); Albumin Level 3.9 g/dL (3.5-5.0); Alkaline Phosphatase 63 U/L (39-117); Amphetamine Screen Urine Not Detected (Not Detect); Anion Gap 13 (12-20); Aspartate Amino Transferase 15 U/L (5-31); Barbiturates, Urine Not Detected (Not Detect); Benzodiazepines Screen Urine Not Detected (Not Detect); Bilirubin Total 0.6 mg/dL (0.0-1.0); Blood Urea Nitrogen 11 mg/dL (9-16); Cannabinoid Screen Urine Not Detected (Not Detect); Chloride 104 mmol/L (96-108); Cocaine Screen Urine Not Detected (Not Detect); Creatinine Clr Calc Pharmacy 68.1; Estimated Glomerular Filt Rate > 60; Fentanyl, urine Not Detected (Not Detect); Glucose Random 94 mg/dL (60-115); Lipase 22 U/L (8-78); Opiate Screen Urine Not Detected (Not Detect); Phencyclidine Screen Urine Not Detected (Not Detect); Potassium 3.7 mmol/L (3.3-5.1); Salicylate < 5.0 mg/dL (15-30); Sodium 136 mmol/L (135-145); Total Protein 6.3 g/dL (6.5-8.0)
[2020-11-23 01:16] LABS: Carbon Dioxide 23 mmol/L (22-29)
[2020-11-23 02:09] LABS: Troponin-I High Sensitivity < 3.5 ng/L (<3.5-17.0)
--- NOTE | 2020-11-23 02:20 | P.HPHOSP_ITS ---
History of Present Illness Date of Service: 11/23/20 Chief Complaint: Altered mental status 50-year-old female with a single and past medical history presented to the hospital with a chief complaint of altered mental status. Patient is currently has improved mental status. Patient's at bedside. 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 Denies any chest pain palpitations lightheadedness or dizziness. Denies any signs of infection. Subsequently brought to the hospital for further evaluation. At the time of entry patient has improved mental status; denies any fever chills cough. Denies any GI or symptoms. ER course: Per ER team patient on presentation noted to be mildly confused not responding well enough; exam was nonfocal; labs essentially benign; CT abdomen showed no acute findings urinalysis negative for any infection but noted microscopic hematuria-attributed to her current menstruation going on; CT head showed 5 mm right frontal calcification/underlying mass cannot be excluded and recommended MRI; patient was given Keppra empirically given concerns for possible seizure in the differential. Discussed with neurology Dr. almonte who recommended admission to the [facility] further evaluation. [facility], [facility] Medical History (Updated 11/23/20 @ 02:03 by Clark Perez MD) No known health problems Social History Advance Directives: No Patient : No Meds Allergies Allergy/AdvReac Type Severity Reaction Status Date / Time No Known Allergies Allergy Verified 04/15/20 14:47 [No Known Allergies*] Active Medications: Current Medications Generic Name Dose Route Start Last Admin Trade Name Freq PRN Reason Stop Dose Admin Acetaminophen 650 mg 11/23/20 02:15 Acetaminophen 325 Mg Tablet PO Q6H PRN Pain, Mild (Pain Scale 1-3) Dextrose/Sodium Chloride 1,000 mls @ 50 mls/hr 11/23/20 02:15 D51/2ns IVCONT .Q20H LARRY Levetiracetam 500 mg in 100 mls @ 400 mls/hr 11/23/20 02:18 Keppra IV 11/23/20 02:32 ONCE STA Melatonin 6 mg 11/23/20 02:15 Melatonin 3 Mg Tablet PO BEDTIME PRN Insomnia Senna 17.2 mg 11/23/20 02:15 Sennosides 8.6 Mg Tablet PO BEDTIME PRN Constipation Sodium Chloride 3 ml 11/23/20 08:00 0.9 % Sodium Chloride Flush 3 Ml Syringe IVFLUSH QSHIFT LARRY Physical Exam Vital Signs and Narrative: Vital Signs: Last Vital Signs Temp 97.8 F 11/22/20 22:31 Pulse 79 11/23/20 01:52 Resp 16 11/23/20 01:52 BP 125/77 11/23/20 01:52 Pulse Ox 98 11/23/20 01:52 Body Mass Index 23.2 Gen: Appears be in no acute distress HEENT: NCAT, Moist mucosa. Pulmonary: Vesicular breath sounds, fair air entry CVS: Normal S1-S2 Abdomen: BS+, Soft, Nontender Extremities: Warm well perfused Neuro: Alert and awake. Oriented x3; grossly nonfocal Results Labs CBC and Chem 7: 11/23/20 00:19 11/23/20 00:18 Labs: Laboratory Results - last 24 hr 11/23/20 11/23/20 11/23/20 00:18 00:18 00:18 MCV MCH MCHC RDW Plt Count MPV Immature Gran % (Auto) Neut % (Auto) Lymph % (Auto) [place] % (Auto) Eos % (Auto) Baso % (Auto) Lymph # (Auto) [place] # (Auto) Eos # (Auto) Baso # (Auto) Abs Immat Gran (auto) Absolute Neuts (auto) Absolute Nucleated RBC Nucleated RBC % (auto) PT INR APTT D-Dimer VBG pH VBG pCO2 VBG pO2 VBG HCO3 VBG O2 Saturation VBG Base Excess Anion Gap 13 Estim Creat Clear Calc 68.1 Estimated GFR > 60 Random Glucose 94 Calcium 9.0 Total Bilirubin 0.6 AST 15 ALT 8 Alkaline Phosphatase 63 Total Creatine Kinase 42 Troponin I High Sens < 3.5 Total Protein 6.3 L Albumin 3.9 Lipase 22 Urine Color Urine Appearance Urine pH Ur Specific [place] Urine Protein Urine Glucose (UA) Urine Ketones Urine Blood Urine Nitrite Ur Leukocyte Esterase Urine RBC Urine WBC Ur Squamous Epith Cells Urine Bacteria Salicylates < 5.0 L Urine Opiates Screen Urine Fentanyl Screen Acetaminophen < 1 Ur Barbiturates Screen Ur Phencyclidine Scrn Ur Amphetamines Screen U Benzodiazepines Scrn Urine Cocaine Screen U Marijuana (THC) Screen Ethyl Alcohol COVID-19 (NEGRA) Negative COVID-19 Clin Com See Note 11/23/20 11/23/20 11/23/20 00:18 00:18 00:18 MCV MCH MCHC RDW Plt Count MPV Immature Gran % (Auto) Neut % (Auto) Lymph % (Auto) [place] % (Auto) Eos % (Auto) Baso % (Auto) Lymph # (Auto) [place] # (Auto) Eos # (Auto) Baso # (Auto) Abs Immat Gran (auto) Absolute Neuts (auto) Absolute Nucleated RBC Nucleated RBC % (auto) PT INR APTT D-Dimer VBG pH VBG pCO2 VBG pO2 VBG HCO3 VBG O2 Saturation VBG Base Excess Anion Gap Estim Creat Clear Calc Estimated GFR Random Glucose Calcium Total Bilirubin AST ALT Alkaline Phosphatase Total Creatine Kinase Troponin I High Sens Total Protein Albumin Lipase Urine Color RED Urine Appearance HAZY Urine pH 6.0 Ur Specific [place] <= 1.005 Urine Protein NEG Urine Glucose (UA) NEG Urine Ketones 5 Urine Blood 3+ H Urine Nitrite NEG Ur Leukocyte Esterase NEG Urine RBC 76-150 H Urine WBC 0-2 Ur Squamous Epith Cells TRACE Urine Bacteria TRACE Salicylates Urine Opiates Screen Not Detected Urine Fentanyl Screen Not Detected Acetaminophen Ur Barbiturates Screen Not Detected Ur Phencyclidine Scrn Not Detected Ur Amphetamines Screen Not Detected U Benzodiazepines Scrn Not Detected Urine Cocaine Screen Not Detected U Marijuana (THC) Screen Not Detected Ethyl Alcohol < 10 COVID-19 (NEGRA) COVID-19 Clin Com 11/23/20 11/23/20 11/23/20 00:19 00:19 00:25 MCV 90.4 MCH 30.7 MCHC 34.0 RDW 11.7 Plt Count 328 MPV 10.7 Immature Gran % (Auto) 0.4 Neut % (Auto) 72.7 Lymph % (Auto) 18.6 L [place] % (Auto) 7.2 Eos % (Auto) 0.7 Baso % (Auto) 0.4 Lymph # (Auto) 2.1 [place] # (Auto) 0.8 Eos # (Auto) 0.1 Baso # (Auto) 0.0 Abs Immat Gran (auto) 0.04 H Absolute Neuts (auto) 8.3 Absolute Nucleated RBC 0.000 Nucleated RBC % (auto) 0.0 PT 12.5 INR 1.1 APTT 31.1 D-Dimer < 200 VBG pH 7.38 VBG pCO2 39 VBG pO2 67 VBG HCO3 23 VBG O2 Saturation 90.0 VBG Base Excess -1.2 Anion Gap Estim Creat Clear Calc Estimated GFR Random Glucose Calcium Total Bilirubin AST ALT Alkaline Phosphatase Total Creatine Kinase Troponin I High Sens Total Protein Albumin Lipase Urine Color Urine Appearance Urine pH Ur Specific [place] Urine Protein Urine Glucose (UA) Urine Ketones Urine Blood Urine Nitrite Ur Leukocyte Esterase Urine RBC Urine WBC Ur Squamous Epith Cells Urine Bacteria Salicylates Urine Opiates Screen Urine Fentanyl Screen Acetaminophen Ur Barbiturates Screen Ur Phencyclidine Scrn Ur Amphetamines Screen U Benzodiazepines Scrn Urine Cocaine Screen U Marijuana (THC) Screen Ethyl Alcohol COVID-19 (NEGRA) COVID-19 Clin Com Imaging Radiologist's Impressions: Impressions Abdomen/Pelvis CT 11/22/20 22:43 IMPRESSION: No evidence of pulmonary embolus. No acute findings identified in the abdomen/pelvis. Chest CTA 11/22/20 22:43 IMPRESSION: No evidence of pulmonary embolus. No acute findings identified in the abdomen/pelvis. Head CT 11/22/20 22:44 IMPRESSION: No acute intracranial pathology. Right frontal lobe calcification measuring 5 mm, which may be associated with underlying mass; this would be best further assessed with pre and postcontrast MRI. Assessment and Plan (1) Acute alteration in mental status: Status: Acute (2) Cerebral calcification: Status: Acute 50-year-old female with no significant past medical history presented to the hospital with a chief complaint of altered mental status/staring episodes/prefer response episode. Altered mental status: Reportedly patient had a brief unresponsive episode/staring episode. Concern for seizure. Exam nonfocal CT head showed 5 mm right frontal lobe calcifications/underlying mass cannot be excluded recommended MRI. Will obtain MRI brain with and without contrast Will continue keppra 500 mg b.i.d. for possible seizure. EEG Neurology aware of the patient Telemetry Initial troponin x-ray of EKG nonischemic Labs essentially benign No obvious signs of infection Dysphagia screen Clear liquid diet DVT prophylaxis: SCD boots Code status: Full Code off Note: Things to follow for the day hospitalist once care resumed at 7:00 a.m. on 11/23/2020. MRI brain Neurology consult recommendations Advanced diet as tolerated Quality Stroke Does the patient have a stroke diagnosis?: No VTE Prior VTE?: No VTE Risk Level:: Medical - moderate - high VTE Device Contraindication: N/A - Device Ordered VTE Drug Contraindication: Treatment Not Indicated
[2020-11-23] MEDS: levETIRAcetam in NaCl (iso-os) 500 MG/100 ML PIGGYBACK 400 MG IV (02:31)
[2020-11-23] MEDS: Dextrose 5 % and 0.45 % NaCl 1,000 ML 50 ML IVCONT (02:36)
[2020-11-23 03:06] LABS: TSH reflex Free T4 2.59 uIU/mL (0.32-4.0)
[2020-11-23] MEDS: Acetaminophen 325 MG TABLET 650 MG PO ×3 (04:42→19:40)
--- NOTE | 2020-11-23 06:11 | PC.NURSE ---
hospitalist at bedside with pt
[2020-11-23 06:48] LABS: MANUAL DIFF FLAG NO
[2020-11-23 06:51] LABS: Basophils Percent Auto 0.4 % (0-2); Eosinophils Absolute Auto 0.2 X10*3/uL (0.0-0.4); Eosinophils Percent Auto 1.9 % (0-4); Hematocrit 37.5 % (37-47); Hemoglobin 12.5 g/dl (12.0-16.0); Imm Gran Abs Auto 0.03 X10*3/uL (0.00-0.03); Imm Gran Pct Auto 0.4 % (0.0-0.4); Lymphocytes Absolute Auto 2.8 X10*3/uL (1.2-4.9); Lymphocytes Percent Auto 32.1 % (20-40); Mean Corpuscular HGB Conc 33.3 g/dl (31.0-35.0); Mean Corpuscular Hemoglobin 29.8 pg (27.0-33.0); Mean Corpuscular Volume 89.5 fL (80-98); Mean Platelet Volume 10.9 fL (9.4-12.3); Monocytes Absolute Auto 0.8 X10*3/uL (0.1-1.2); Monocytes Percent Auto 9.2 % (2-11); Neutrophils Absolute Auto 4.8 X10*3/uL (2.0-8.3); Platelet Count 330 X10*3/uL (160-400); Red Blood Count 4.19 X10*6/uL (4.20-5.50); Red Cell Distribution Width 11.7 % (11.0-16.0); White Blood Count 8.6 X10*3/uL (4.8-10.8)
[2020-11-23 07:18] LABS: Anion Gap 12 (12-20); Blood Urea Nitrogen 8 mg/dL (9-16); Carbon Dioxide 24 mmol/L (22-29); Chloride 108 mmol/L (96-108); Creatinine Clr Calc Pharmacy 72.1; Estimated Glomerular Filt Rate > 60; Glucose Random 99 mg/dL (60-115); Potassium 3.9 mmol/L (3.3-5.1); Sodium 140 mmol/L (135-145)
[2020-11-23] MEDS: levETIRAcetam 500 MG TABLET PO ×2 (10:24→20:33)
--- NOTE | 2020-11-23 10:29 | PM.NEUROCN ---
History of Present Illness Data of Consult Service Date: 11/23/20 Primary Care Provider: [place]ia Mendoza MD [facility] Reason for consult: Brain lesion 50 years old woman with no significant past medical history was noted by her to be unresponsive. He left her normal and when he came back she was lying on the floor unresponsive not able to talk. After some time she was able to talk. He did not notice any convulsion. In emergency room she was better and at this time back to baseline. She had no explanation of what had happened. There was no physical injury or incontinence. She was not known to have any seizure disorder. Review of Systems Review of Systems: No recent trauma cold or flu-like illness. FORMERLY [facility], [facility] Past Medical History Medical History (Updated 11/23/20 @ 02:03 by Clark Perez MD) No known health problems Social History Social History Advance Directives: No Patient : No Meds Allergies Allergy/AdvReac Type Severity Reaction Status Date / Time No Known Allergies Allergy Verified 04/15/20 14:47 [No Known Allergies*] Active Medications: Current Medications Generic Name Dose Route Start Last Admin Trade Name Freq PRN Reason Stop Dose Admin Acetaminophen 650 mg 11/23/20 02:15 11/23/20 10:04 Acetaminophen 325 Mg Tablet PO 650 mg Q6H PRN Administration Pain, Mild (Pain Scale 1-3) Dextrose/Sodium Chloride 1,000 mls @ 50 mls/hr 11/23/20 02:15 11/23/20 02:36 D51/2ns IVCONT 50 mls/hr .Q20H LARRY Administration Levetiracetam 500 mg 11/23/20 09:00 11/23/20 10:24 Levetiracetam 500 Mg Tablet PO 500 mg BID LARRY Administration Melatonin 6 mg 11/23/20 02:15 Melatonin 3 Mg Tablet PO BEDTIME PRN Insomnia Senna 17.2 mg 11/23/20 02:15 Sennosides 8.6 Mg Tablet PO BEDTIME PRN Constipation Sodium Chloride 3 ml 11/23/20 08:00 0.9 % Sodium Chloride Flush 3 Ml Syringe IVFLUSH QSHIFT LARRY Physical Exam Vital Signs: Vital Signs: Last Vital Signs Temp 98.1 F 11/23/20 07:10 Pulse 87 11/23/20 09:45 Resp 16 11/23/20 09:45 BP 116/84 11/23/20 09:45 Pulse Ox 98 11/23/20 09:45 Body Mass Index 23.2 Neuro: Other: She was alert and awake with normal spontaneity of speech fluency comprehension and wake affect. She did not speaking lesion into was performed with the help of her family. She was following commands and able to name and repeat. Visual monte are full to confrontation. Face was symmetrical. Extraocular muscles were intact. Pupils were equal round reactive to light. There was no pronator drift. Deep tendon reflexes were 2+ with flexor plantars. Results Labs CBC & Chem 7: 11/23/20 06:28 11/23/20 06:28 Labs: Short CBC 11/23/20 11/23/20 Range/Units 00:19 06:28 WBC 11.4 H 8.6 (4.8-10.8) X10*3/uL Hgb 12.5 12.5 (12.0-16.0) g/dl Hct 36.8 L 37.5 (37-47) % Plt Count 328 330 (160-400) X10*3/uL BMP 11/23/20 11/23/20 00:18 06:28 Sodium 136 140 Potassium 3.7 3.9 Chloride 104 108 Carbon Dioxide 23 24 BUN 11 8 L Creatinine 0.71 0.67 Calcium 9.0 9.0 Cardiac Enzymes 11/23/20 Range/Units 00:18 Total Creatine Kinase 42 (26-140) U/L Liver Function 11/23/20 Range/Units 00:18 Total Bilirubin 0.6 (0.0-1.0) mg/dL AST 15 (5-31) U/L ALT 8 (0-31) U/L Alkaline Phosphatase 63 (39-117) U/L Albumin 3.9 (3.5-5.0) g/dL Urine 11/23/20 Range/Units 00:18 Urine Color RED Urine Appearance HAZY Urine pH 6.0 (5.0-8.0) Ur Specific [place] <= 1.005 (1.005-1.025) Urine Protein NEG (NEG-TRACE) MG/DL Urine Glucose (UA) NEG (NEG) MG/DL Noncontrast head CT revealed a right frontal rounded hyperdensity with no obvious surrounding edema suggestive of chronicity of this lesion. Assessment and Plan (1) Acute alteration in mental status: Start date: 11/23/20 Status: Acute 50 years old woman with no previous past medical history presented in emergency room after she was noted to have passed out or unresponsive for few minutes. Etiology was unclear. Her examination was nonfocal and her head CT revealed a right frontal hyperdensity suggestive of chronic calcification. She might have a seizure. Recommendations at this time are to obtain an electroencephalogram and brain MRI with and without contrast for further evaluation. Procedures Date of Service Date of Service: 11/23/20
--- NOTE | 2020-11-23 10:45 | P.EN_ITS ---
Event Note Date of Service: 11/23/20 Event Note: 50-year-old female with no significant past medical history presen harriett to the hospital with a chief complaint of altered mental status/staring episodes/prefer response episode. Altered mental status:? Reportedly patient had a brief unresponsive episode/staring episode.? Concern for seizure. Exam nonfocal CT head showed 5 mm right frontal lobe calcifications/underlying mass cannot be excluded recommended MRI. Will obtain MRI brain with and without contrast Will continue keppra 500 mg b.i.d. for possible seizure. EEG Neurology aware of the patient Telemetry Initial troponin x-ray of EKG nonischemic Labs essentially benign No obvious signs of infection Dysphagia screen Clear liquid diet DVT prophylaxis:? SCD boots Code status: Full Code
[2020-11-23] MEDS: ondansetron HCL 4 MG/2 ML VIAL IVPUSH (11:12)
--- NOTE | 2020-11-23 11:27 | MHC.CM.PN ---
Addendum entered by Miladis Miranda 11/23/20 11:32: Received Moderna on 05/31 and 06/28. Original Note: Attempted to meet with patient in regards to discharge planning. Patient is currently sleeping. Both patient and Nahor primarily speak Indian. Nahor is able to speak and understand Yoruba. [facility], ambulates independently and had no services prior to coming to the ER. PCP verified. Patient had 2 Covid vaccines. [facility]. At this time, services are not anticipated to be necessary because patient is not homebound. [facility] will transport patient home when medically stable. Continue to monitor for d/c needs.
--- NOTE | 2020-11-23 13:26 | MHC.STROKE ---
Addendum entered by Hallie Toure RN 11/24/20 11:43: I met with the patient and her , we discussed the brain calcification and Dr. Malik's recommendations. She will have the EEG this morning. would like to see her after she is discharged for follow up. Addendum entered by Hallie Toure RN 11/23/20 16:19: I reviewed the MRI with Dr. Malik, he will put in his recommendations. She will stay overnight and be monitored. I did relay this information to the patient and her . I also discussed this with Juana SULLIVAN. Original Note: 1215 Patient admitted to room 279, she went from the ED to MRI at 1130 then to 279 at 1215. Her speaks Uzbek and assisted with the assessment. vitals stable and recorded. No further c/o of nausea. Diet will be upgraded and she can take food from home. No seizure activity noted. Seizure precautions in place. No c/o of pain. She voided 200cc, she is mildly menstruating. personal care done.
[2020-11-23] MEDS: 0.9 % Sodium Chloride Flush 3 ML SYRINGE IVFLUSH ×2 (15:47→19:42)
[2020-11-23] MEDS: Melatonin 3 MG TABLET 6 MG PO (19:40)
[2020-11-24] VITALS: BP 113/75; PULSE 87; RESP 16; TEMP 37.1; O2SAT 98
[2020-11-24 04:00] VITALS: BP 94/63; PULSE 84; RESP 16; TEMP 36.3; O2SAT 98
[2020-11-24 06:51] LABS: Hematocrit 38.7 % (37-47); Hemoglobin 12.9 g/dl (12.0-16.0); Mean Corpuscular HGB Conc 33.3 g/dl (31.0-35.0); Mean Corpuscular Hemoglobin 30.1 pg (27.0-33.0); Mean Corpuscular Volume 90.2 fL (80-98); Mean Platelet Volume 10.7 fL (9.4-12.3); Platelet Count 341 X10*3/uL (160-400); Red Blood Count 4.29 X10*6/uL (4.20-5.50); Red Cell Distribution Width 11.9 % (11.0-16.0); White Blood Count 7.3 X10*3/uL (4.8-10.8)
[2020-11-24 07:07] LABS: Anion Gap 11 (12-20); Blood Urea Nitrogen 9 mg/dL (9-16); Calcium 9.2 mg/dL (8.4-10.2); Carbon Dioxide 23 mmol/L (22-29); Chloride 109 mmol/L (96-108); Creatinine Clr Calc Pharmacy 66.2; Estimated Glomerular Filt Rate > 60; Glucose Random 92 mg/dL (60-115); Sodium 139 mmol/L (135-145)
[2020-11-24 07:52] VITALS: BP 105/73; PULSE 77; RESP 19; TEMP 36.8; O2SAT 77
[2020-11-24] MEDS: 0.9 % Sodium Chloride Flush 3 ML SYRINGE IVFLUSH (08:09)
[2020-11-24] MEDS: levETIRAcetam 500 MG TABLET PO (10:12)
--- NOTE | 2020-11-24 10:35 | PC.NURSE ---
Patient is off the unit having her EEG done
--- NOTE | 2020-11-24 11:34 | PC.NURSE ---
Patient back from EEG, transporter said everything went well.
[2020-11-24 11:37] VITALS: BP 128/75; PULSE 77; RESP 16; TEMP 36.8; O2SAT 98
[2020-11-24] MEDS: diphenhydrAMINE HCL 25 MG TABLET PO (12:08)
--- NOTE | 2020-11-24 12:10 | PM.DS ---
DS: Providers Provider Date of Service: 11/24/20 Date of admission: 11/23/20 02:15 Primary care physician: [place] Mendoza MD Consults: 11/23/20 02:19 Consult to Neurology Routine Consulting Provider: [facility] Reason for consultation: rt frontal lesion; AMS; ?seizure Attending physician on discharge: Maury Corral Discharging clinician: Maury Corral DS: Diagnosis Discharge Diagnosis (1) Acute alteration in mental status: Status: Acute DS: Summary Hospital Course Hospital Course: HPI: 50-year-old female with a single and past medical history presented to the hospital with a chief complaint of altered mental status. Patient is currently has improved mental status.? Patient's at bedside. 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 Denies any chest pain palpitations lightheadedness or dizziness.? Denies any signs of infection. Subsequently brought to the hospital for further evaluation. At the time of entry patient has improved mental status; denies any fever chills cough.? Denies any GI or symptoms. Hospital Course: Patient was loaded with IV Keppra and subsequently transitioned to oral Keppra. She underwent workup in the hospital which included an EEG which was verbally reported by nuerology as normal . MRI redemonstrated the 0.5 cm calcified lesion in the anterior right frontal lobe. There were no suspicious features. No abnormal enhancement. Differential includes a possible tiny calcified cavernoma. Patient's symptoms have improved and she will be discharged home on 500 mg of Keppra b.i.d. with follow-up with Dr. King perez. Time Spent with Patient Time attestation: Total time spent providing and/or coordinating discharge services: Discharge coordination time: Greater than 30 minutes Quality: Stroke Does the patient have a stroke diagnosis?: No Physical Exam Vital Signs: Vital Signs: Last Vital Signs Temp 98.2 F 11/24/20 11:37 Pulse 77 11/24/20 11:37 Resp 16 11/24/20 11:37 BP 128/75 11/24/20 11:37 Pulse Ox 98 11/24/20 11:37 Body Mass Index 23.2 DS: Data Data Completed and Pending Labs on day of discharge: Laboratory Results - last 24 hr 11/24/20 11/24/20 06:28 06:28 WBC 7.3 RBC 4.29 Hgb 12.9 Hct 38.7 MCV 90.2 MCH 30.1 MCHC 33.3 RDW 11.9 Plt Count 341 MPV 10.7 Absolute Nucleated RBC 0.000 Nucleated RBC % (auto) 0.0 Sodium 139 Potassium 4.0 Chloride 109 H Carbon Dioxide 23 Anion Gap 11 L BUN 9 Creatinine 0.73 Estim Creat Clear Calc 66.2 Estimated GFR > 60 Random Glucose 92 Calcium 9.2 Discharge Plan Discharge Patient Disposition: Home, Self-Care Discharge Diagnosis: Seizure Referrals: [place]ia Mendoza MD [Primary Care Provider] - 1 Week Breonna Malik MD [Physician] - 1 Week Discharge Medications: New levetiracetam 500 mg Tablet 500 mg PO BID Qty: 60 RF: 0 Discharge Orders: Discharge Order (Routine); Ordered 11/24/20 Ordered By: Maury Corral Diet: advance to usual diet Activity on Discharge: As tolerated Stand Alone Forms: Patient Portal Discharge page Care Plan Goals: To stay healthy and out of the hospital. Health Concerns: Possible seizure. Plan of Treatment: Take Keppra and follow up with Dr. Malik Assessment: 50-year-old female presented with acute changes in mental status concerning for postictal confusion from seizure. Started on Keppra. Underwent workup which included an MRI and EEG. She will be discharged on Keppra and will have close follow-up with Dr. Malik from Neurology Discharge Date/Time: 11/24/20 12:44
--- NOTE | 2020-11-24 12:12 | MHC.CM.PN ---
PT CLEARED TO DC HOME TODAY WITH NO SERVICES FAMILY TO TRANSPORT
== END 2020-11-24 12:44 | disposition home or self-care (01) | DRG 53 ==
LOC: HO.ED 11-23 02:03 → HO.EDOVER 11-23 02:26 → HO.ISO 11-23 10:19
PROVIDERS: Nurse Practitioner Acute Care; Admitting Provider Hospitalist; Emergency Provider Emergency Medicine Emergency Medical Services; PCP Internal Medicine; Visit Provider Physician Assistant Medical
DX: R56.9 Unspecified convulsions (principal); G93.89 Other specified disorders of brain; Z20.822 Contact with and (suspected) exposure to COVID-19; Z79.899 Other long term (current) drug therapy
CPT/HCPCS: 36415; 70450; 70553; 71275; 74177; 80048; 80053; 80143; 80179; 80307; 81001; 82077; 82550; 82803; 83690; 84443; 84484; 85025; 85027; 85379; 85610; 85730; 87635; 93005; 95816; 96374; 99219; 99285; A9585; J1953; J2405; Q0163; Q9967

== ENCOUNTER 2021-01-30 11:14 | Outpatient (REF) | payer MEDICAID, OTHER, SELFPAY ==
--- NOTE | ~2021-01-30 | MM_ITS ---
EXAMINATION: MM DIAGNOSTIC DIGITAL BREAST TOMOSYNTHESIS, RIGHT CLINICAL INFORMATION: Short interval six-month follow-up probable benign fibroglandular densities posterior upper right breast. The lifetime risk of breast cancer based on the Tyrer-Cuzick Model is 6%. COMPARISON: Mammography: 08/05/2020, 08/01/2020 (BI-RADS 0), 12/27/2018, 11/19/2017. TECHNIQUE: Digital breast tomosynthesis is performed in both the craniocaudal and mediolateral oblique views along with computer-aided detection (CAD). Synthesized 2D images are generated from the tomosynthesis. FINDINGS: The breasts are heterogeneously dense, which may obscure small masses (ACR BI-RADS breast composition Category c). Parenchymal pattern is similar to prior studies. Fibroglandular densities posterior upper right breast are stable from prior studies. No developing density or interval mass or architectural abnormality. The skin contours are smooth. Results are provided to the patient at time of visit by the technologist. MM/MM tomosynthesis diagnostic RT IMPRESSION: No significant changes from prior exams. ASSESSMENT: BI-RADS 2: Benign RECOMMENDATION: Routine annual mammography screening. This patient's information was entered into a reminder system with a target due date for their next mammogram.
== END 2021-01-30 11:15 | disposition home or self-care (01) ==
LOC: HO.MAMMO 11:14
PROVIDERS: Visit Provider Internal Medicine
DX: R92.2 Inconclusive mammogram (principal)
CPT/HCPCS: 77061; 77065

== ENCOUNTER 2021-07-12 08:59 | Emergency (ER) | payer MEDICAID, OTHER, SELFPAY ==
--- NOTE | ~2021-07-12 | XR_ITS ---
EXAMINATION: XR ABDOMEN KUB CLINICAL INDICATION: Constipation COMPARISON: Previous CT of the abdomen and pelvis November 2020 TECHNIQUE: AP view of the abdomen. FINDINGS: There is stool throughout the colon suggestive of constipation. There are no dilated loops of bowel to suggest obstruction. There is no evidence of free air. There are left pelvic calcifications. These are similar to previous CT scan and probably represent calcified phleboliths. Bony structures are normal. XR/XR KUB IMPRESSION: Stool throughout the colon suggestive of constipation.
[2021-07-12 10:25] VITALS: BP 128/92; PULSE 95; RESP 16; TEMP 36.9; O2SAT 99; BMI 18.8
[2021-07-12 10:43] LABS: MANUAL DIFF FLAG NO
[2021-07-12 10:47] LABS: Appearance Urine HAZY; Color Urine YELLOW; Glucose Urine UA NEG (NEG); Leukocyte Esterase Urine TRACE (NEG); Nitrite Urine NEG (NEG); Urine Blood NEG (NEG); Urine Ketones NEG (NEG); Urine Protein NEG (NEG-TRACE)
[2021-07-12 10:49] LABS: Basophils Absolute Auto 0.1 X10*3/uL (0.0-0.2); Basophils Percent Auto 0.6 % (0-2); Eosinophils Absolute Auto 0.2 X10*3/uL (0.0-0.4); Eosinophils Percent Auto 2.1 % (0-4); Hematocrit 42.3 % (37.0-47.0); Hemoglobin 14.1 g/dl (12.0-16.0); Imm Gran Abs Auto 0.02 X10*3/uL (0.00-0.03); Imm Gran Pct Auto 0.2 % (0.0-0.4); Lymphocytes Absolute Auto 2.9 X10*3/uL (1.2-4.9); Lymphocytes Percent Auto 36.3 % (20-40); Mean Corpuscular HGB Conc 33.3 g/dl (31.0-35.0); Mean Corpuscular Hemoglobin 31.1 pg (27.0-33.0); Mean Corpuscular Volume 93.2 fL (80.0-98.0); Mean Platelet Volume 10.5 fL (9.4-12.3); Monocytes Absolute Auto 0.7 X10*3/uL (0.1-1.2); Monocytes Percent Auto 8.6 % (2-11); Neutrophils Absolute Auto 4.2 x10*3/uL (2.0-8.3); Neutrophils Percent Auto 52.2 % (45-73); Platelet Count 348 X10*3/uL (160-400); Red Blood Count 4.54 X10*6/uL (4.20-5.50); Red Cell Distribution Width 12.6 % (11.0-16.0)
[2021-07-12 11:00] LABS: Squamous Epithelial Cell Urine 2+ /LPF
[2021-07-12 11:01] LABS: Bacteria Urine 1+ /LPF
[2021-07-12 11:02] LABS: RBC Urine 0-2 /HPF (0); WBC Urine 0-2 /HPF (0-4)
[2021-07-12 11:03] LABS: Alanine Aminotransferase 11 U/L (0-31); Albumin Level 4.5 g/dL (3.5-5.0); Alkaline Phosphatase 68 U/L (39-117); Anion Gap 13 (12-20); Aspartate Amino Transferase 17 U/L (5-31); Bilirubin Direct 0.3 mg/dL (0.0-0.5); Bilirubin Total 0.7 mg/dL (0.0-1.0); Blood Urea Nitrogen 9 mg/dL (9-16); Carbon Dioxide 24 mmol/L (22-29); Chloride 106 mmol/L (96-108); Creatinine Clr Calc Pharmacy 62.7; Estimated Glomerular Filt Rate > 60; Glucose Random 86 mg/dL (60-115); Potassium 4.9 mmol/L (3.3-5.1); Sodium 138 mmol/L (135-145); Total Protein 7.9 g/dL (6.5-8.0)
--- NOTE | 2021-07-12 12:08 | ED.GENADULT ---
HPI - General Adult General Chief complaint: Abdominal Pain Stated complaint: back pain Time Seen by Provider: 07/12/21 12:08 Source: patient Mode of arrival: ambulatory Limitations: no limitations History of Present Illness HPI narrative: Patient is a 51 year old female presenting to the emergency department today with low back pain. Patient states that she is uncomfortable because she has not had a bowel movement for 2 days. Patient states that the pressure is hurting her low back. Patient denies any dizziness, lightheadedness, abdominal pain, nausea, vomiting, fever, chills, blurry vision, double vision, loss of vision, chest pain, difficulty breathing, shortness of breath, night sweats, pain with urination, increased urinary frequency, increased urinary urgency, blood in her urine or stool, syncope or a near syncopal episode, recent trauma or falls, bowel incontinence, bladder incontinence, bowel retention, bladder retention, or any other complaints at this time. Onset (ago): day(s) (2) Location: back Radiation: non-radiation Severity: mild Severity scale (1-10): 3 Quality: dull Pain Consistency: constant Relieving factors: none Exacerbating factors: none Associated symptoms: denies other symptoms Treatments prior to arrival: none Related Data Previous Rx's Medication Instructions Recorded levetiracetam 250 mg tablet 250 mg PO BID #60 tab 11/24/20 ([place]) Allergies Allergy/AdvReac Type Severity Reaction Status Date / Time aspirin Allergy Difficulty Verified 07/12/21 10:24 Breathing Review of Systems Constitutional: Constitutional: Reports no additional constitutional complaints, Denies chills, Denies fever(s) and Denies night sweats Eyes: Eyes: Reports no additional eye complaints, Denies blurry vision, Denies change in vision, Denies diplopia, Denies eye discharge, Denies loss of vision and Denies eye pain ENT: Denies dizziness Cardiovascular: Cardiovascular: Reports no additional cardiovascular complaints, Denies chest pain, Denies lightheadedness, Denies Loss of Consciousness and Denies dyspnea Respiratory: Respiratory: Reports no additional respiratory complaints and Denies dyspnea Gastrointestinal: Gastrointestinal: Reports no additional gastrointestinal complaints, Reports abdominal pain, Denies melena, Denies hematochezia, Denies change in bowel habits, Denies change in stool character and Reports constipation Genitourinary: Genitourinary: Denies hematuria, Denies urinary frequency, Denies dysuria, Denies urinary incontinence, Denies urinary hesitancy and Denies urinary urgency Musculoskeletal: Musculoskeletal: Reports no additional musculoskeletal complaints, Denies numbness and Denies tingling Neurologic: Denies dizziness, Denies loss of vision, Denies numbness and Denies tingling Psychiatric: Psychiatric: Reports no additional psychiatric complaints Endocrine: Endocrine: Reports no additional endocrine complaints Hematologic/Lymphatic: Hematologic/Lymphatic: Reports no additional hematologic/lymphatic complaints Allergic/Immunologic: Allergic/Immunologic: Reports no additional allergic/immunologic complaints PMFSH Past Medical History Attestation statement: The following information was validated with the patient. Source: old records reviewed Medical History Cerebral calcification No known health problems Social History Social History Household Members: Spouse Housing: House Do you presently have visiting nurse or other home services: No Alcohol intake: never Patient Tobacco Use Status: Never used Tobacco e-Cigarette/Vaping Use: Never Used Use of substances other than those prescribed or required for medical reasons: No Advance Directives: No Advance Directives Information Provided: No service: No Current occupational status: employed Physical Exam ED Vital Signs: Vital Signs - 24 hr 07/12/21 10:25 07/12/21 13:29 Temperature 98.4 F Pulse Rate 95 67 Respiratory Rate 16 18 Blood Pressure 128/92 H 105/70 Pulse Oximetry 99 100 BMI result Body Mass Index 18.8 Const General: cooperative, no acute distress, alert and awake Nutritional Appearance: well nourished Orientation/consciousness: patient oriented x3 Limitations: no limitations HENHI Head: Yes normal to inspection and Yes atraumatic Ears: hearing grossly normal bilaterally and external ears normal General nose exam: Normal external nose present, no nasal discharge noted and no epistaxis Face and sinus: Yes normal facial exam, No abrasion and No laceration Mouth: Normal oral and palatal mucosa present, no drooling and no muffled voice Eyes General: appearance normal, both eyes and all related structures Periorbital: periorbital findings normal Eyelids: Yes eyelids normal Conjunctivae: conjunctivae normal Pupils: Equal, round and reactive pupils present EOM: EOMs intact bilaterally Neck Neck: Yes normal visual inspection, Yes full ROM and Yes no lymphadenopathy Chest Chest palpation & inspection: normal inspection of the chest Resp Effort & Inspection: normal respiratory effort and able to speak in complete sentences Auscultation: clear to auscultation bilaterally Cardio Rate: regular rate Rhythm: regular rhythm GI Inspection: Yes normal to inspection Palpation (GI): Soft to palpation, not firm, nontender, no guarding and not rigid General: Yes no CVA tenderness Back/Spine/Pelvis Back: no CVA tenderness Cervical Spine: normal cervical lordosis Thoracic/Lumbar Spine: thoracic and lumbar spine normal to inspection and thoraco-lumbar ROM normal Pelvis: no pain with anterior-posterior compression and no pain with lateral compression Neuro General: patient oriented x3 and moves all extremities Cranial nerves: Yes Equal, round and reactive pupils present Cognition (Neuro): normal cognition Motor exam (neuro): 5/5 motor strength present throughout Sensory Exam: Normal double simultaneous stimulation for sensation Coordination: [id number] test normal Extrem General: Yes normal to inspection, Yes full ROM and Yes capillary refill normal Psych Appearance: grossly normal Mental Status: mental status grossly normal Affect: normal affect Attitude: cooperative Thought process: Normal thought process present Thought content: Normal thought content present Insight: Good insight present (Psych) Medical Decision Making MDM Narrative Medical decision making narrative: Patient is a 51 year old female presenting to the emergency department today with back pain. Patient's physical exam was unremarkable. Patient's blood work was unremarkable. Patient's KUB x-ray showed constipation. I explained my physical exam findings as well as all test results to the patient. I answered all questions asked by the patient. Patient received an enema which she stated helped her symptoms significantly. I stressed the importance of the patient taking her medication as prescribed. I stressed the importance of the patient following up with her primary care provider. I stressed the importance of the patient returning to the emergency department immediately if her symptoms were to worsen or if she were to develop any dizziness, shortness of breath, difficulty breathing, chest pain, blurry vision, loss of vision, nausea, vomiting, abdominal pain, fever, chills, back pain, or any other complaints. Patient and verbalized agreement and understanding with this treatment plan and discharge. Differential Diagnosis Differential Diagnosis: back pain, constipation Medical Records Medical records reviewed: Yes I reviewed the patient's medical records. Lab Data Lab results reviewed: Yes I reviewed the patient's lab results. Result diagrams: 07/12/21 10:38 07/12/21 10:38 Labs: Lab Results 07/12/21 07/12/21 07/12/21 Range/Units 10:38 10:38 10:38 WBC 8.0 (4.8-10.8) X10*3/uL RBC 4.54 (4.20-5.50) X10*6/uL Hgb 14.1 (12.0-16.0) g/dl Hct 42.3 (37.0-47.0) % MCV 93.2 (80.0-98.0) fL MCH 31.1 (27.0-33.0) pg MCHC 33.3 (31.0-35.0) g/dl RDW 12.6 (11.0-16.0) % Plt Count 348 (160-400) X10*3/uL MPV 10.5 (9.4-12.3) fL Immature Gran % (Auto) 0.2 (0.0-0.4) % Neut % (Auto) 52.2 (45-73) % Lymph % (Auto) 36.3 (20-40) % Yates % (Auto) 8.6 (2-11) % Eos % (Auto) 2.1 (0-4) % Baso % (Auto) 0.6 (0-2) % Lymph # (Auto) 2.9 (1.2-4.9) X10*3/uL Yates # (Auto) 0.7 (0.1-1.2) X10*3/uL Eos # (Auto) 0.2 (0.0-0.4) X10*3/uL Baso # (Auto) 0.1 (0.0-0.2) X10*3/uL Abs Immat Gran (auto) 0.02 (0.00-0.03) X10*3/uL Absolute Neuts (auto) 4.2 (2.0-8.3) x10*3/uL Absolute Nucleated RBC 0.000 (0.0-0.012) X10*3/uL Nucleated RBC % (auto) 0.0 (0.0-0.2) /100WBC Sodium 138 (135-145) mmol/L Potassium 4.9 D (3.3-5.1) mmol/L Chloride 106 (96-108) mmol/L Carbon Dioxide 24 (22-29) mmol/L Anion Gap 13 (12-20) BUN 9 (9-16) mg/dL Creatinine 0.78 (0.5-1.4) mg/dL Estim Creat Clear Calc 62.7 Estimated GFR > 60 Random Glucose 86 (60-115) mg/dL Calcium 10.0 D (8.4-10.2) mg/dL Total Bilirubin 0.7 (0.0-1.0) mg/dL Direct Bilirubin 0.3 (0.0-0.5) mg/dL AST 17 (5-31) U/L ALT 11 (0-31) U/L Alkaline Phosphatase 68 (39-117) U/L Total Protein 7.9 D (6.5-8.0) g/dL Albumin 4.5 (3.5-5.0) g/dL Urine Color YELLOW Urine Appearance HAZY Urine pH 6.0 (5.0-8.0) Ur Specific [place] 1.020 (1.005-1.025) Urine Protein NEG (NEG-TRACE) MG/DL Urine Glucose (UA) NEG (NEG) MG/DL Urine Ketones NEG (NEG) MG/DL Urine Blood NEG (NEG) Urine Nitrite NEG (NEG) Ur Leukocyte Esterase TRACE H (NEG) Urine RBC 0-2 (0) /HPF Urine WBC 0-2 (0-4) /HPF Ur Squamous Epith Cells 2+ /LPF Urine Bacteria 1+ /LPF Imaging Data Abdominal x-ray: Attestation: I personally reviewed and interpreted this imaging study as follows: My impression: Constipation. Radiologist's impression: EXAMINATION: XR ABDOMEN KUB CLINICAL INDICATION: Constipation? COMPARISON: Previous CT of the abdomen and pelvis November 2020 TECHNIQUE: AP view of the abdomen. FINDINGS: There is stool throughout the colon suggestive of constipation. There are no dilated loops of bowel to suggest obstruction. There is no evidence of free air. There are left pelvic calcifications. These are similar to previous CT scan and probably represent calcified phleboliths. Bony structures are normal. XR/XR KUB IMPRESSION: Stool throughout the colon suggestive of constipation. Dictated By: Rosanne Barclay MD Signed By: Electronically signed by Rosanne Barclay MD 07/12/21 1232 Discharge Plan Discharge Clinical Impression: Constipation Patient Disposition: Home, Self-Care Instructions: Constipation (DC) Additional Instructions: Follow up with your primary care provider. Return to the emergency department immediately if your symptoms worsen or if you develop any dizziness, shortness of breath, difficulty breathing, chest pain, blurry vision, loss of vision, nausea, vomiting, abdominal pain, fever, chills, back pain, or any other complaints. Prescriptions: No Action levetiracetam [Keppra] 250 mg tablet 250 mg PO BID Qty: 60 0RF Referrals: [place]ia Mendoza MD [Primary Care Provider] - Print Language: Barbadian
[2021-07-12 13:29] VITALS: BP 105/70; PULSE 67; RESP 18; O2SAT 100
== END 2021-07-12 15:20 | disposition home or self-care (01) ==
PROVIDERS: Emergency Provider Emergency Medicine; PCP Internal Medicine
DX: K59.00 Constipation, unspecified (principal)
CPT/HCPCS: 36415; 74018; 80048; 80076; 81001; 85025; 99283; 99284

== ENCOUNTER 2021-08-03 10:57 | Outpatient (REF) | payer MEDICAID, OTHER, SELFPAY ==
--- NOTE | ~2021-08-03 | MM_ITS ---
EXAMINATION: MM SCREENING DIGITAL BREAST TOMOSYNTHESIS, BILATERAL CLINICAL INFORMATION: Screening. Asymptomatic. The lifetime risk of breast cancer based on the Tyrer-Cuzick Model is 6.8%. COMPARISON: Mammography: 01/30/2021 and studies dating back to 11/19/2017. TECHNIQUE: Digital breast tomosynthesis is performed in both the craniocaudal and mediolateral oblique views along with computer-aided detection (CAD). Synthesized 2D images are generated from the tomosynthesis. FINDINGS: The breasts are extremely dense, which lowers the sensitivity of mammography (ACR BI-RADS breast composition Category d). There is a stable parenchymal pattern of the left breast. Within the deep medial aspect of the right breast, there is an ill-defined approximately 7 x 5 mm density approximately 6 cm from the nipple for which spot compression view is recommended. MM/MM tomosynthesis screening BI IMPRESSION: Right breast densities, further evaluation as described. ASSESSMENT: BI-RADS 0: Incomplete - Need Additional Imaging Evaluation RECOMMENDATION: 1. Additional views of the right breast. 2. Targeted ultrasound if warranted after review of the additional views. 3. Radiology department staff will contact the patient for additional imaging.
== END 2021-08-03 10:58 | disposition home or self-care (01) ==
LOC: HO.MAMMO 10:57
PROVIDERS: PCP Internal Medicine; Visit Provider Internal Medicine
DX: Z12.31 Encounter for screening mammogram for malignant neoplasm of breast (principal)
CPT/HCPCS: 77063; 77067

== ENCOUNTER 2021-08-15 14:33 | Outpatient (REF) | payer MEDICAID, OTHER, SELFPAY ==
--- NOTE | ~2021-08-15 | MM_ITS ---
EXAMINATION: MM DIAGNOSTIC DIGITAL BREAST TOMOSYNTHESIS, RIGHT CLINICAL INFORMATION: Density about the medial aspect of the right breast. COMPARISON: Mammography: 08/03/2021 and studies dating back to 11/19/2017. TECHNIQUE: Digital breast tomosynthesis is performed. 2D images are generated from the tomosynthesis. The following views are obtained: Spot compression views in craniocaudal and mediolateral oblique projections. FINDINGS: The breasts are extremely dense, which lowers the sensitivity of mammography (ACR BI-RADS breast composition Category d). Additional views show no significant mass, architectural abnormality, or abnormal calcifications. The question densities are seen to compress out and to have likely represented superimposition of fibroglandular tissue. There are few stable circumscribed densities about the lateral aspect which on prior ultrasound study there have been shown to be cysts in this location and appearance is unchanged. Results are provided to the patient at time of visit by the technologist. MM/MM tomosynthesis added views R IMPRESSION: No persistent suspicious mass identified within the right breast. Recommend 6 month follow-up right breast mammogram to ensure stability ASSESSMENT: BI-RADS 3: Probably Benign. RECOMMENDATION: Diagnostic mammography in 6 months. This patient's information was entered into a reminder system with a target due date for their next mammogram.
== END 2021-08-15 14:34 | disposition home or self-care (01) ==
LOC: HO.MAMMO 14:33
PROVIDERS: Visit Provider Internal Medicine
DX: R92.1 Mammographic calcification found on diagnostic imaging of breast (principal)
CPT/HCPCS: 77061; 77065

== ENCOUNTER 2022-01-26 15:55 | Outpatient (REF) | payer MEDICAID, OTHER, SELFPAY ==
--- NOTE | ~2022-01-26 | US_ITS ---
EXAMINATION: US PELVIS CLINICAL INFORMATION: Excessive and frequent menstruation. LMP about 2 weeks ago. COMPARISON: None TECHNIQUE: Ultrasound of the pelvis is performed using both transabdominal and transvaginal transducers along with Doppler. Transvaginal imaging is performed due to inadequate visualization transabdominally. FINDINGS: The uterus measures 7.5 x 3.7 x 4.7 cm. No fibroids are identified. The endometrium measures 0.6 cm in thickness without discrete focal abnormality. The right ovary measures 2.1 x 1.6 x 1.2 cm (2.1 mL) and the left ovary measures 4.4 x 3.9 x 4.4 cm (39.5 mL). There is preserved color flow to both ovaries at the moment of this examination. Discrepancies in size is likely explained by the presence of a 3.6 x 3.5 x 3.5 cm cystic appearing lesion in the left ovary that demonstrates some peripheral echogenic debris and thin internal septations. No free fluid. US/US pelvic and transvaginal IMPRESSION: 1. There is a 3.6 cm cystic lesion in the left ovary with some peripheral echogenic debris and thin internal septations. This is nonspecific and could represent a hemorrhagic cyst. Recommend a follow-up pelvic ultrasound in 6-12 weeks to ensure resolution. 2. No evidence of ovarian torsion at the moment of this examination. 3. No uterine fibroids. 4. Endometrium measures 0.6 cm in thickness which is within normal limits for a premenopausal patient. However, if there is clinical concern for endometrial pathology, correlation with an MR of the pelvis with and without intravenous contrast could be obtained.
== END 2022-01-26 15:56 | disposition home or self-care (01) ==
LOC: HO.US 15:55
PROVIDERS: Visit Provider Advanced Practice Midwife
DX: Z13.89 Encounter for screening for other disorder (principal)
CPT/HCPCS: 76830; 76856

== ENCOUNTER 2022-01-30 13:55 | Outpatient (REF) | payer MEDICAID, OTHER, SELFPAY ==
--- NOTE | ~2022-01-30 | MM_ITS ---
EXAMINATION: MM DIAGNOSTIC DIGITAL BREAST TOMOSYNTHESIS, RIGHT CLINICAL INFORMATION: Question of asymmetric density posterior central inner right breast on prior imaging. Assess for occult developing density. The lifetime risk of breast cancer based on the Tyrer-Cuzick Model is 7%. COMPARISON: Mammography: 08/19/2021, 08/03/2021 (BI-RADS 0), 01/30/2021, 08/05/2020, 08/01/2020, 12/09/2018 TECHNIQUE: Digital breast tomosynthesis is performed in both the craniocaudal and mediolateral oblique views along with computer-aided detection (CAD). Synthesized 2D images are generated from the tomosynthesis. FINDINGS: The breasts are heterogeneously dense, which may obscure small masses (ACR BI-RADS breast composition Category c). Fibroglandular parenchymal pattern is similar to prior studies and there is no developing density or architectural abnormality. No abnormal calcifications. The axilla and skin contours are unremarkable. Results are provided to the patient at time of visit by the technologist. MM/MM tomosynthesis diagnostic RT IMPRESSION: -No mammographic evidence of malignancy. -Parenchymal pattern is similar to prior studies. ASSESSMENT: BI-RADS 1: Negative RECOMMENDATION: Routine annual mammography screening. This patient's information was entered into a reminder system with a target due date for their next mammogram.
== END 2022-01-30 13:56 | disposition home or self-care (01) ==
LOC: HO.MAMMO 13:55
PROVIDERS: PCP Internal Medicine; Visit Provider Internal Medicine
DX: R92.2 Inconclusive mammogram (principal)
CPT/HCPCS: 77061; 77065